=== PATIENT | female | born 1950 | race Caucasian/White ===

== ENCOUNTER → 2023-03-01 07:32 | Outpatient (BNVA) | payer MEDICARE, BC, SELFPAY | PROVIDERS: PCP Student in an Organized Health Care Education/Training Program; Referring Provider Student in an Organized Health Care Education/Training Program; Visit Provider Psychiatry & Neurology Neurology | DX: G40.909 Epilepsy, unspecified, not intractable, without status epilepticus (principal) | CPT/HCPCS: 99203 ==

== ENCOUNTER 2023-05-11 10:52 | Outpatient (CLI) | payer MEDICARE, SELFPAY ==
--- NOTE | 2023-05-11 11:00 | MR_ITS ---
WS: [id number] MRI HEAD WITH CONTRAST TECHNIQUE: Sagittal T1, T2 axial, T2 axial FLAIR, axial susceptibility weighted imaging, axial diffus ion weighted images, and coronal T2 images were obtained. Pre and post-T1 axial and post T1 coronal i mages. ADC and FSPGR images. CLINICAL INFORMATION: G40.909 - Epilepsy, unspecified, not intractable, without... COMPARISON: None. FINDINGS: No evidence of restricted diffusion to suggest acute ischemia. Ventricular system and basilar cistern s are patent. Moderate to advanced patchy supratentorial white matter changes compatible with small v essel disease in a patient this age. Mild parenchymal volume loss. Normal posterior fossa. Normal vas cular flow voids at the skull base. No extra-axial fluid collections. Small amount of T2 signal abnor mality in the RIGHT inferior medial temporal lobe measuring 1.5 cm is technically indeterminant. This may represent chronic small vessel change or gliosis. Recommend interval follow-up in 3 to 6 months to confirm stability and exclude low-grade glioma No evidence of mass or mass effect. Paranasal sinuses are well aerated. Mastoid air cells are well a erated. Normal posterior nasopharynx. No hemosiderin on the susceptibly weighted images. Normal optic chiasm and pituitary infundibulum. Temporal lobes and hippocampal formations are normal in appearanc e. No abnormal gadolinium enhancement. Normal dural venous sinuses. IMPRESSION: 1. No evidence of restricted diffusion to suggest acute ischemia. 2. Moderate to advanced supratentorial small vessel changes. Mild parenchymal volume loss. 3. Small amount of T2 signal abnormality in the RIGHT inferior medial temporal lobe measuring 1.5 cm nonspecific but most likely chronic small vessel change or gliosis. This can be followed in 3 to 6 m onths with gadolinium to to confirm stability. No abnormal enhancement in this area. 4. No hemosiderin on the susceptibly weighted images. 5. No abnormal gadolinium enhancement. 6. Temporal lobes and hippocampal formations are normal in appearance.
[2023-05-11] MEDS: gadobenate dimeglumine 20 mL vial IV (11:47)
== END 2023-05-11 10:53 | disposition home or self-care (01) ==
LOC: RAD 10:55
PROVIDERS: PCP Student in an Organized Health Care Education/Training Program; Visit Provider Psychiatry & Neurology Neurology
DX: G40.909 Epilepsy, unspecified, not intractable, without status epilepticus (principal)
CPT/HCPCS: 70553; 95813; 95819; A9577

== ENCOUNTER → 2023-05-17 14:58 | Outpatient (BNVA) | payer MEDICARE, BC, SELFPAY | PROVIDERS: PCP Student in an Organized Health Care Education/Training Program; Visit Provider Psychiatry & Neurology Neurology | DX: G40.409 Other generalized epilepsy and epileptic syndromes, not intractable, without status epilepticus (principal) | CPT/HCPCS: 99212 ==

== ENCOUNTER 2023-12-08 13:39 | Outpatient (CLI) | payer MEDICARE, SELFPAY ==
--- NOTE | 2023-12-08 13:45 | MR_ITS ---
WS: [id number] MRI HEAD WITH CONTRAST TECHNIQUE: Sagittal T1, T2 axial, T2 axial FLAIR, axial susceptibility weighted imaging, axial diffus ion weighted images, and coronal T2 images were obtained. Pre and post-T1 axial and post T1 coronal i mages. ADC and FSPGR images. 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 COMPARISON MRI 05/11/2023 FINDINGS: Previously described 1.5 cm focus of T2 hyperintensity in the RIGHT mesial temporal lobe is unchanged in appearance. No abnormal gadolinium enhancement in this area. This may represent chronic gliosis b ut no significant encephalomalacia in this area and low-grade glioma difficult to exclude. Recommend continued surveillance with 12-month follow-up to ensure stability. No other significant changes compared to previous. No evidence of restricted diffusion to suggest acu te ischemia. Moderate to advanced small vessel changes. Mild parenchymal volume loss. Otherwise mild symmetric atrophy temporal lobes hippocampal formations. No hemosiderin on susceptibility-weighted im ages. Normal optic chiasm and pituitary infundibulum. Normal posterior fossa. Normal vascular flow vo ids at the skull base. No extra-axial fluid collections. Mild mucosal thickening in the ethmoid air cells. Mastoid air cells are well aerated. Normal posterio r nasopharynx. No abnormal gadolinium enhancement. Normal dural venous sinuses. MR/MR head wo/w con [id number] IMPRESSION: 1. Previously described focus of T2 signal normality in the RIGHT mesial tempo ral lobe is unchanged. No abnormal gadolinium enhancement. Recommend 12-month f ollow-up to ensure stability. This may represent gliosis but low-grade glioma d ifficult to exclude. 2. No evidence of restricted diffusion to suggest acute ischemia. 3. Moderate to advanced vessel changes with mild parenchymal volume loss. 4. No other suspicious findings.
[2023-12-08] MEDS: gadobenate dimeglumine 20 mL vial 13 ML IV (14:36)
== END 2023-12-08 13:40 | disposition home or self-care (01) ==
LOC: RAD 13:40
PROVIDERS: PCP Student in an Organized Health Care Education/Training Program; Visit Provider Psychiatry & Neurology Neurology
DX: I67.89 Other cerebrovascular disease (principal); R94.02 Abnormal brain scan; G40.409 Other generalized epilepsy and epileptic syndromes, not intractable, without status epilepticus
CPT/HCPCS: 70553